=== PATIENT | male | born 1940 | race African-American/Black ===

== ENCOUNTER 2016-11-16 12:08 | Emergency (ER) | payer MEDICARE, OTHER ==
[~2016-11-16] VITALS: Ht 167.6 cm; Wt 70.0 kg
[~2016-11-16 12:08] MED LIST: ATEN1TAB73 PO; CEPH500C3 PO; FERR324T4 PO; GLIP5 PO; METH500T3 PO; NIAS10004 PO; PRIN20TA2 PO; PROT40TA PO; TRAM50TA PO
[2016-11-16 12:11] VITALS: BP 197/83; PULSE 64; RESP 20; TEMP 98.7; O2SAT 99
[2016-11-16] MEDS ORDERED: SODIUM CHLOR 0.9% 1000 ML INJ 1,000 ML IV SCH ×2 (13:16→15:40)
[2016-11-16] MEDS ORDERED: KETOROLAC TROMETHAMINE 30 MG/ML (IVP) VIAL IVP ONE (13:30)
[2016-11-16] MEDS ORDERED: ONDANSETRON HCL 4 MG/2 ML VIAL IVP ONE (13:30)
[2016-11-16] MEDS ORDERED: FAMOTIDINE 20 MG/2 ML VIAL IV PUSH ONE (13:30)
[2016-11-16 13:40] VITALS: BP 139/63; PULSE 86; RESP 16; TEMP 98.7; O2SAT 97
--- NOTE | 2016-11-16 13:40 | PD ---
HPI Chief Complaint: Abdominal Pain Time Seen by Provider: 13:36 Travel History International Travel<30 days: No Contact w/Intl Traveler<30days: No Traveled to known affect area: No History of Present Illness HPI 76-year-old male that presents to the ED for evaluation of epigastric abdominal pain with nausea and vomiting since this morning. Per patient is in ongoing sentences morning. Per patient she did not have any symptoms yesterday. He does tell me that he has a history of lymphoma and is currently being treated with immunotherapy with no issues. Per patient she's had some vomiting with immunotherapy but nothing like this. Per patient he was concerned because the pain in his epigastric area has not completely resolved and is still present. He does feel somewhat nauseous but has not vomited for a couple hours now. Per patient he did vomited about 3 times. Per patient no blood but he did vomit whenever he had eaten yesterday. He denies any new foods. He states that yesterday he ate some chicken and salad. ate the same and she has no symptoms. He denies any bowel movement issues and states that he had normal bowel movement today. No urinary issues. No surgeries to his abdomen. He denies being treated with chemotherapy. Denies taking any blood thinners. Per patient the pain is more like an ache and is 4 out of 10. He states been compliant with his medications. He has not seen anybody for this. He has no allergies to medication. Has not taken anything for this. PFSH Past Medical History Arthritis: Yes Cancer: No Cardiovascular Problems: No High Cholesterol: Yes Diabetes: Yes Diminished Hearing: No Endocrine: Yes Glaucoma: No Genitourinary: No Hepatitis: No Hiatal Hernia: No Hypertension: Yes Immune Disorder: No Musculoskeletal: Yes (ARTHTITIS) Neurologic: Yes (HX GUILLIAN BARRE) Psychiatric: No Reproductive: No Respiratory: No Thyroid Disease: No Past Surgical History Abdominal Surgery: No AICD: No Cardiac Surgery: No Ear Surgery: No Endocrine Surgery: No Eye Surgery: No Genitourinary Surgery: No Gynecologic Surgery: No Joint Replacement: Yes (RIGHT HIP) Oral Surgery: No Pacemaker: No Thoracic Surgery: No Social History Alcohol Use: Yes Tobacco Use: No Substance Use: No Allergies-Medications (Allergen,Severity, Reaction): Coded Allergies: No Known Allergies (Verified , 01/02/14) Reported Meds & Prescriptions Reported Meds & Active Scripts Active Zantac (Ranitidine HCl) 150 Mg Tab 150 Mg PO BID PRN Zofran (Ondansetron HCl) 4 Mg Tab 4 Mg PO Q6HR PRN Reported Multi-Vitamin Daily (Multiple Vitamin) 1 Tab Tab 1 Tab PO DAILY Tramadol (Tramadol HCl) 50 Mg Tab 50 Mg PO BID Omeprazole 20 Mg Tab 20 Mg PO DAILY Methocarbamol 500 Mg Tab 1,000 Mg PO TID Metformin ER (Metformin HCl) 500 Mg Sol 500 Mg PO BID With evening meal Lisinopril 40 Mg Tab 40 Mg PO DAILY Atorvastatin (Atorvastatin Calcium) 20 Mg Tab 20 Mg PO HS Aspirin Low Dose (Aspirin) 81 Mg Chew 81 Mg CHEW DAILY Atenolol 50 Mg Tab 50 Mg PO DAILY Review of Systems General / Constitutional: No: Fever, Chills, Weight Gain, Weight Loss, Other Eyes: No: Diploplia, Blurred Vision, Photophobia, Drainage, Redness, Foreign Body Sensation, Pain, Tearing, Blind Spots, Visual changes, Blindness, Other HENT: No: Headaches, Vertigo, Lightheadedness, Sore Throat, Rhinitis, Rhinorrhea, Congestion, Nosebleed, Neck Stiffness, Neck Pain, Masses, Gingival Bleeding, Dental Difficulties, Ear Discharge, Earache, Other Cardiovascular: No: Chest Pain or Discomfort, Palpitations, Irregular Rhythm, Tachycardia, Diaphoresis, Syncope, Dyspnea on exertion, Varicosities, Edema, Cyanosis, Varicosities, Phlebitis, Claudication, Other Respiratory: No: Cough, Shortness of Breath, Wheezing, Sneezing, Orthopnea, Hemoptysis, Stridor, Night Sweats, Pleuritic Pain, Other Gastrointestinal: Positive: Nausea, Vomiting, Abdominal Pain, No: Diarrhea, Hematemesis, Hematochezia, Constipation, Changes in Bowel Habits, Indigestion, Dysphagia, Loss of Appetite, Other Genitourinary: No: Urgency, Frequency, Dysuria, Nocturia, Hematuria, Decreased Urinary Output, Oliguria, Hesitancy, Dribbling, Incontinence, Pelvic Pain, Flank Pain, Dyspareunia, Discharge, Dysmenorrhea, Menorrhagia, Metorrhagia, Vaginal Bleeding, Other Musculoskeletal: No: Myalgias, Arthralgias, Limited ROM, Weakness, Cramping, Edema, Pain, Atrophy, Other Skin: No Rash, No Itching, No Dryness, No Lumps, No Hives, No Change in Pigmentation, No Change in nails, No Alopecia, No Lesions, No Breast Lumps, No Breast Tenderness, No Breast Swelling, No Other Neurologic: No: Weakness, Dizziness, Syncope, Focal Abnormalities, Coordination Problem, Tremor, Ataxia, Headache, Change in Mentation, Slurred Speech, Paresthesia, Incontinence, Seizures, Sensory Disturbance, Other Psychiatric: No: Anxiety, Depression, Suicidal Ideations, Disorder of Thought, Mood Disorder, Substance Abuse, Homicidal Ideation, Other Endocrine: No: Heat Intolerance, Cold Intolerance, Polyuria, Polydipsia, Other Hematologic/Lymphatic: No: Easy Bruising, Lymph Node Enlargement, Other Physical Exam Narrative GENERAL: SKIN: Warm and dry. HEAD: Atraumatic. Normocephalic. EYES: Pupils equal and round. No scleral icterus. No injection or drainage. ENT: No nasal bleeding or discharge. Mucous membranes pink and moist. Tongue is midline. No uvula deviation. NECK: Trachea midline. No JVD. CARDIOVASCULAR: Regular rate and rhythm. No murmurs, S3, S4. RESPIRATORY: No accessory muscle use. Clear to auscultation. Breath sounds equal bilaterally. GASTROINTESTINAL: Abdomen soft, tender to palpation on the epigastric area but minimal. No rebound tenderness., nondistended. Hepatic and splenic margins not palpable. MUSCULOSKELETAL: Extremities without clubbing, cyanosis, or edema. No obvious deformities. Full range of motion of the upper and lower extremities bilaterally. 2+ pulses bilaterally. NEUROLOGICAL: Awake and alert. No obvious cranial nerve deficits. Motor grossly within normal limits. Five out of 5 muscle strength in the arms and legs. Normal speech. PSYCHIATRIC: Appropriate mood and affect; insight and judgment normal. Data Data Last Documented VS Vital Signs Date Time Temp Pulse Resp B/P Pulse Ox O2 Delivery O2 Flow Rate FiO2 11/16/16 18:00 74 16 161/77 97 Room Air 11/16/16 13:40 98.7 Orders Complete Blood Count With Diff (11/16/16 13:16) Comprehensive Metabolic Panel (11/16/16 13:16) Lipase (11/16/16 13:16) Lactic Acid (11/16/16 13:16) Urinalysis - C+S If Indicated (11/16/16 13:16) Ct Abd/Pel W Iv Contrast(Rout) (11/16/16 13:16) Iv Access Insert/Monitor (11/16/16 13:16) Ondansetron Inj (Zofran Inj) (11/16/16 13:30) Sodium Chlor 0.9% 1000 Ml Inj (Ns 1000 M (11/16/16 13:16) Famotidine Inj (Pepcid Inj) (11/16/16 13:30) Ketorolac Inj (Toradol Inj) (11/16/16 13:30) Iohexol 350 Inj (Omnipaque 350 Inj) (11/16/16 15:01) Lactic Acid (11/16/16 15:11) Us Abdomen Gallbladder (11/16/16 ) Sodium Chlor 0.9% 1000 Ml Inj (Ns 1000 M (11/16/16 15:40) Labs Laboratory Tests Test 11/16/16 11/16/16 11/16/16 13:30 14:00 15:25 White Blood Count 8.8 TH/MM3 Red Blood Count 4.28 MIL/MM3 Hemoglobin 12.6 GM/DL Hematocrit 38.0 % Mean Corpuscular Volume 88.9 FL Mean Corpuscular Hemoglobin 29.6 PG Mean Corpuscular Hemoglobin 33.3 % Concent Red Cell Distribution Width 12.9 % Platelet Count 180 TH/MM3 Mean Platelet Volume 9.9 FL Neutrophils (%) (Auto) 93.8 % Lymphocytes (%) (Auto) 2.7 % Monocytes (%) (Auto) 3.3 % Eosinophils (%) (Auto) 0.0 % Basophils (%) (Auto) 0.2 % Neutrophils # (Auto) 8.3 TH/MM3 Lymphocytes # (Auto) 0.2 TH/MM3 Monocytes # (Auto) 0.3 TH/MM3 Eosinophils # (Auto) 0.0 TH/MM3 Basophils # (Auto) 0.0 TH/MM3 CBC Comment DIFF FINAL Differential Comment Sodium Level 135 MEQ/L Potassium Level 4.3 MEQ/L Chloride Level 98 MEQ/L Carbon Dioxide Level 25.2 MEQ/L Anion Gap 12 MEQ/L Blood Urea Nitrogen 16 MG/DL Creatinine 1.39 MG/DL Estimat Glomerular Filtration 60 ML/MIN Rate Random Glucose 268 MG/DL Lactic Acid Level 6.0 mmol/L 4.5 mmol/L Calcium Level 9.7 MG/DL Total Bilirubin 0.4 MG/DL Aspartate Amino Transf 16 U/L (AST/SGOT) Alanine Aminotransferase 23 U/L (ALT/SGPT) Alkaline Phosphatase 74 U/L Total Protein 7.9 GM/DL Albumin 4.2 GM/DL Lipase 109 U/L Urine Color YELLOW Urine Turbidity CLEAR Urine pH 6.5 Urine Specific Dickinson 1.024 Urine Protein TRACE mg/dL Urine Glucose (UA) 1000 mg/dL Urine Ketones TRACE mg/dL Urine Occult Blood NEG Urine Nitrite NEG Urine Bilirubin NEG Urine Urobilinogen LESS THAN 2.0 MG/DL Urine Leukocyte Esterase NEG Urine RBC LESS THAN 1 /hpf Urine WBC LESS THAN 1 /hpf Urine Squamous Epithelial <1 /hpf Cells Urine Hyaline Casts 2 /lpf Urine Mucus FEW /lpf Microscopic Urinalysis Comment CULT NOT INDICATED MDM Medical Decision Making Medical Screen Exam Complete: Yes Emergency Medical Condition: Yes Medical Record Reviewed: Yes Interpretation(s) Last Impressions Abdomen/Pelvis CT 11/16/16 1316 Signed Impressions: Service Date/Time: Monday, November 16, 2016 14:48 - CONCLUSION: Gallbladder wall thickening as described above. No other significant abnormality is appreciated. Richard Ovalles MD FACR US negative CBC & BMP Diagram 11/16/16 13:30 Differential Diagnosis Epigastric pain versus gastritis versus gastroenteritis versus food poisoning versus nausea and vomiting Narrative Course 76-year-old male that presents to the ED for evaluation of epigastric pain. Patient was properly examined and was found to have signs and symptoms consistent with appears to be epigastric pain. Unclear etiology at this time. Possible gastroenteritis. Patient does have significant history including lymphoma. This time I do recommend labs and imaging as well as medications. Patient is agreeable with this. Labs and imaging showed elevated lactic acid as well as possible cholecystitis per CT scan. LFTS WNL. Ultrasound of the gallbladder was ordered. This was negative for acute of the gallbladder. Second lactic acid was ordered which was improved from prior after 2 L of fluids. At this time I believe that this is likely gastroenteritis. Lactic acid could be elevated secondary to dehydration as well as to patient's lymphoma. Patient has been reassessed multiple times during his stay and has been feeling fine with no sign of acute disease or distress. Case was discussed with my attending Dr Cordova who agrees with discharge plan. Patient will be discharged home with prescriptions for Zantac and Zofran. Patient was told to follow up with PCP. See ED worsening symptoms. Liquid diet until better. Diagnosis Primary Impression: Epigastric abdominal pain Additional Impression: Vomiting Qualified Code: R11.2 - Non-intractable vomiting with nausea, unspecified vomiting type Patient Instructions: General Instructions Additional Instructions: Take medications as prescribed. Follow-up with PCP. Liquid diet until better. See ED worsening symptoms. Med/Other Pt SpecificInfo: Prescription(s) given Scripts Ranitidine (Zantac)150 Mg Oct729 Mg PO BID PRN (PAIN SCALE 1 TO 10) #20 TAB Prov:Ester Cordova MD 11/16/16 Ondansetron (Zofran)4 Mg Tab4 Mg PO Q6HR PRN (NAUSEA OR VOMITING) #15 TAB Prov:Ester Cordova MD 11/16/16 Disposition: 01 DISCHARGE HOME Condition: Stable Gian Adams Nov 16, 2016 13:40
[2016-11-16 13:52] LABS: AUTOMATED NEUTROPHIL # 8.3 TH/MM3 (1.8-7.7); BASOPHIL % 0.2 % (0.0-2.0); HEMO FLAGS DIFF FINAL; LYMPH % 2.7 % (9.0-44.0); LYMPHOCYTE # 0.2 TH/MM3 (1.0-4.8); MEAN CELL VOLUME 88.9 FL (80.0-100.0); MEAN CORPUSCULAR HEMOGLOBIN 29.6 PG (27.0-34.0); MEAN CORPUSCULAR HGB CONC 33.3 % (32.0-36.0); MONO % 3.3 % (0.0-8.0); NEUT % 93.8 % (16.0-70.0); PLATELET COUNT 180 TH/MM3 (150-450); RED BLOOD COUNT 4.28 MIL/MM3 (4.50-5.90); RED CELL DISTRIBUTION WIDTH 12.9 % (11.6-17.2); WHITE BLOOD COUNT 8.8 TH/MM3 (4.0-11.0)
[2016-11-16] MEDS ORDERED: LISI40TA PO (13:53)
[2016-11-16] MEDS ORDERED: ATOR20TA15 PO (13:53)
[2016-11-16] MEDS ORDERED: ASPI81CH37 CHEW (13:53)
[2016-11-16] MEDS ORDERED: ATEN50TA PO (13:53)
[2016-11-16] MEDS ORDERED: TRAM50TA PO (13:57)
[2016-11-16] MEDS ORDERED: METF500T4 PO (13:57)
[2016-11-16] MEDS ORDERED: OMEP20TA PO (13:57)
[2016-11-16] MEDS ORDERED: METH500T3 PO (13:57)
[2016-11-16] MEDS ORDERED: MULT-65 PO (13:57)
[2016-11-16 14:12] LABS: ANION GAP 12 MEQ/L (5-15); AST (GOT) 16 U/L (15-37); BICARBONATE 25.2 MEQ/L (21.0-32.0); BLOOD UREA NITROGEN 16 MG/DL (7-18); CHLORIDE 98 MEQ/L (98-107); GLOMERULAR FILTRATION RATE 60 ML/MIN (>89); POTASSIUM 4.3 MEQ/L (3.5-5.1); SODIUM (NA) 135 MEQ/L (136-145)
[2016-11-16 14:15] LABS: ALKALINE PHOSPHATASE 74 U/L (45-117); ALT (GPT) 23 U/L (12-78); TOTAL BILIRUBIN ADULT 0.4 MG/DL (0.2-1.0)
[2016-11-16 14:22] LABS: BLOOD, URINE NEG (NEG); COMMENT (UR) CULT NOT INDICATED; CULTURE IF INDICATED CULT NOT INDICATED; GLUCOSE,URINE 1000 mg/dL (NEG); HYALINE CAST, URINE 2 /lpf (RARE); KETONE, URINE TRACE mg/dL (NEG); MUCUS URINE FEW /lpf (OCC); NITRITE,URINE NEG (NEG); PH, URINE 6.5 (5.0-8.5); SQUAMOUS EPITHELIAL CELL URINE <1 /hpf (0-5); URINE COLOR YELLOW (YELLW/STRAW)
[2016-11-16] MEDS ORDERED: ZAFI1TAB PO (14:27)
[2016-11-16] MEDS ORDERED: IOHEXOL 350 MG/ML 10 ML VIAL (for RAD DIAG) IV ONE (15:01)
--- NOTE | 2016-11-16 15:28 | RADRPT ---
EXAM DATE/TIME: 11/16/2016 14:48 [facility] COMPARISON: No previous studies available for comparison. INDICATIONS : Abdominal pain with nausea and vomiting. IV CONTRAST: 94 cc Omnipaque 350 (iohexol) IV ORAL CONTRAST: No oral contrast ingested. RADIATION DOSE: 9.96 CTDIvol (mGy) MEDICAL HISTORY : Hypertension. Diabetes mellitus type 2. SURGICAL HISTORY : None. ENCOUNTER: Initial ACUITY: 1 day PAIN SCALE: 5/10 LOCATION: Bilateral lower quadrant TECHNIQUE: Volumetric scanning of the abdomen and pelvis was performed. Using automated exposure control and adjustment of the mA and/or kV according to patient size, radiation dose was kept as low as reasonably achievable to obtain optimal diagnostic quality images. FINDINGS: The lung bases are clear. The liver is free of focal defects. Spleen and pancreas are unremarkable. There is gallbladder wall thickening without significant inflammatory changes around t he gallbladder. Cholecystitis still could be a consideration. Adrenals and kidneys are unremarkable. There is symmetrical renal function. Bilateral hip arthroplasties are present causing moderate artifact in the pelvis. There is no ascites or diverticulitis. CONCLUSION: Gallbladder wall thickening as described above. No other significant abnormality is appreciated. Richard Ovalles MD FACR on November 16, 2016 at 15:17 Board Certified Radiologist. This report was verified electronically.
[2016-11-16 16:00] VITALS: BP 143/62; PULSE 80; RESP 20; O2SAT 98
[2016-11-16 18:00] VITALS: BP 161/77; PULSE 74; RESP 16; O2SAT 97
--- NOTE | 2016-11-16 18:23 | RADRPT ---
EXAM DATE/TIME: 11/16/2016 17:29 [facility] COMPARISON: No previous studies available for comparison. INDICATIONS : Right upper quadrant pain. MEDICAL HISTORY : Hypercholesterolemia. Hypertension. Arthritis. Guillian barre. GERD. Diabetes. Anemia. SURGICAL HISTORY : Right knee arthroscopy. Open right knee repair. Total right hip replacement. ENCOUNTER: Initial ACUITY: 1 day PAIN SCORE: 7/10 LOCATION: Right upper quadrant MEASUREMENTS: LIVER: 16.0 cm length COMMON DUCT: 4 mm RIGHT KIDNEY: 10.4 x 4.6 x 5.0 cm FINDINGS: Pancreas not well-visualized. Increased liver echogenicity characteristic of fatty infiltration. Slud ge in gallbladder without gallstones or biliary ductal dilatation. Right kidney measures 10.4 cm in l ength without hydronephrosis. No free fluid. CONCLUSION: 1. Fatty liver. Gallbladder sludge. No biliary ductal dilatation. No free fluid. Teto Azul MD on November 16, 2016 at 18:20 Board Certified Radiologist. This report was verified electronically.
[2016-11-16] MEDS ORDERED: ZOFR4TAB PO (18:45)
[2016-11-16] MEDS ORDERED: ZANT150T2 PO (18:45)
== END 2016-11-16 19:04 | disposition home or self-care (01) ==
LOC: NEPC 12:08
DX: R10.13 Epigastric pain (principal); R11.2 Nausea with vomiting, unspecified; I10 Essential (primary) hypertension
CPT/HCPCS: 74177; 76705; 80053; 81001; 83605; 83690; 85025; 96361; 96374; 96375; 99284; J1885; J2405; J7030; Q9967